=== PATIENT | male | born 2000 | race Caucasian/White ===

== ENCOUNTER 2024-03-08 19:01 | Emergency (ER) | payer OTHER ==
[2024-03-08] MEDS ORDERED: Acetaminophen 500 MG TAB ONE (19:55)
== END 2024-03-08 21:19 | disposition home or self-care (01) ==
LOC: ERS 19:01
DX: S93.401A Sprain of unspecified ligament of right ankle, initial encounter (principal); S29.9XXA Unspecified injury of thorax, initial encounter; V49.9XXA Car occupant (driver) (passenger) injured in unspecified traffic accident, initial encounter
CPT/HCPCS: 71045